=== PATIENT | male | born 1990 | race African-American/Black ===

== ENCOUNTER 2018-06-09 03:50 | Emergency (ER) | payer MEDICAID ==
[~2018-06-09] VITALS: Ht 162.6 cm; Wt 56.6 kg
[~2018-06-09 03:50] MED LIST: DILANTIN; HYDROCHLOROTHIAZIDE
[2018-06-09 06:23] VITALS: BP 158/109
[2018-06-09] MEDS ORDERED: IBUPROFEN 600MG TABLET PO ONE (06:45)
[2018-06-09] MEDS ORDERED: BACITRACIN ZINC OINT UDPKT TOP ONE (06:45)
== END 2018-06-09 10:57 | disposition left against medical advice (07) ==
LOC: ER 03:50
DX: S60.812A Abrasion of left wrist, initial encounter (principal); F17.200 Nicotine dependence, unspecified, uncomplicated; J45.909 Unspecified asthma, uncomplicated; I10 Essential (primary) hypertension; W57.XXXA Bitten or stung by nonvenomous insect and other nonvenomous arthropods, initial encounter; Y93.89 Activity, other specified; Y92.89 Other specified places as the place of occurrence of the external cause; Y99.8 Other external cause status; Z88.6 Allergy status to analgesic agent
CPT/HCPCS: 99283